=== PATIENT | female | born 1965 | race Caucasian/White ===

== ENCOUNTER 2016-10-05 13:48 | Outpatient (CLI) | payer OTHER ==
--- NOTE | 2016-10-05 15:45 | DIAGNOSTIC IMAGING REPORT ---
PROCEDURE: US CHEST INDICATION: SMALL TENDER MASS LT CHEST WALL TECHNIQUE: Bustos scale and color Doppler ultrasound of the left chest wall appear COMPARISON: None. FINDINGS: There is a 1.0 x 0.7 x 0.5 cm subcutaneous echogenic avascular lesion in the left chest wall laterally, most consistent with a lipoma. No evidence of a fluid collection or inflammatory process. IMPRESSION: 1. Left lateral chest wall small subcutaneous echogenic mass, most consistent with a lipoma.
== END 2016-10-05 23:00 ==
LOC: US SRH 13:48
DX: R93.8 Abnormal findings on diagnostic imaging of other specified body structures (principal)

== ENCOUNTER 2016-11-08 14:35 | Outpatient (CLI) | payer OTHER ==
--- NOTE | 2016-11-15 10:02 | DIAGNOSTIC IMAGING REPORT ---
PROCEDURE: MG BILATERAL SCREENING W/CAD INDICATION: SCREENING TECHNIQUE: Bilateral CC and MLO digital views. COMPARISON: Mammogram 07/17/2006. FINDINGS: Computer-aided detection applied. Moderately dense. Scattered dystrophic calcifications. No change. IMPRESSION: 1. Negative mammogram RESULT CODE: 1- Negative. A. A negative report should not delay biopsy if a dominant or clinically suspicious mass is present. 10-15% of cancers are not identified by x-ray. B. A negative report may reinforce clinical impression. C. Adenosis and dense breasts may obscure an underlying neoplasm. D. False positive reports average 6-10%. E.. A yearly screening mammogram is recommended. A reminder letter will be scheduled.
== END 2016-11-08 23:00 ==
LOC: MAM SRH 14:35
DX: Z12.31 Encounter for screening mammogram for malignant neoplasm of breast (principal)